=== PATIENT | female | born 1950 | race Caucasian/White ===

== ENCOUNTER → 2018-10-27 | Outpatient (CLI) | payer MEDICARE ==
[~2018-10-27] MED LIST: ACE3 PO; CALC-797 PO; CALC500T42 PO; CHOL100058 PO; CHOL100059 PO; LEVO-311 PO; MULT-820 PO; MULT-885 PO; OMEG-23 PO; OMEG-24 PO; PNEU0.5D3 IM; ZOST19404 SQ; [UNRECOGNIZED DRUG - OTHER] PO
== END ==
LOC: LAB 12:13
PROVIDERS: ATTEND Family Medicine
DX: E87.5 Hyperkalemia (principal)

== ENCOUNTER → 2018-11-06 | Outpatient (CLI) | payer MEDICARE | LOC: LAB 09:44 | PROVIDERS: ATTEND Family Medicine | DX: E87.5 Hyperkalemia (principal) | CPT/HCPCS: 36415; 84132 ==

== ENCOUNTER → 2018-11-17 | Outpatient (CLI) | payer MEDICARE ==
--- NOTE | 2018-11-17 10:50 | RADIOLOGY IMAGING REPORT ---
FACILITY: [facility] - [place] PATIENT NAME: Lucina James : 1950 MR: [id number] V: [id number] EXAM DATE: [id number] ORDERING PHYSICIAN: SUZI DIGGS TECHNOLOGIST: Location: [facility] [place] Patient: Lucina James : 1950 Visit/Account:[id number] Date of Sevice: 11/17/2018 DEXA Scan Clinical history: Menopause, history of breast cancer. Comparison: DEXA scan from 02/23/2009. LUMBAR SPINE: The bone mineral density (BMD) measured from L1-L4 correlates with a Z-score of 3 and a T-score of 1. 7 which is Normal as defined by the World Health Organization. The corresponding risk of fracture in the lumbar spine is Not increased compared with a young adult reference population. This value has decrease by 2.6 % since the prior study. More than 5% change is considered significant. HIP: Bone mineral density (BMD) measured in the LEFT total hip region correlates with a Z-score 1.8 and a T-score of 0.7 which is normal as defined by the World Health Organization. The corresponding risk of fracture in the hip is Not i ncreased compared to a young adult reference population. This value has decrease by 4.8 % since the p rior study. More than 5% change is considered significant. T score left femoral neck -0.1 Bone mineral density (BMD) measured in the Femoral Neck region measures 1.028 g/cm?. IMPRESSION: 1. Lumbar spine: Normal. There has been 2.6% decrease in the bone mineral density since the previou s exam. 2. Left Total Hip: Normal. There has been 4.8% decrease in the bone mineral density since the previ ous exam. 3. Femoral Neck: Bone Mineral Density is 1.028 g/cm? The next DEXA scan of this patient should include the following sites: L1-L4 and the left hip. FRAX? WHO Fracture Risk Assessment Tool link: <http://www.shef.ac.uk/FRAX/tool.jsp?locationValue=9> PLEASE NOTE: 1) The World Health Organization defines low BMD as follows: T-score Normal > -1 Osteopenia < -1 and > -2.5 Osteoporosis < -2.5 without fractures Established osteoporosis < -2.5 with fractures 2) In general, you may wish to consider: Diagnosis Treatment Follow-up DEXA Normal BMD Prevention 2-3 years Osteopenia Prevention/therapy 1-2 years Osteoporosis Therapy Yearly 3) Fracture risk estimated from the T-score is more accurate for vertebral fractures (often spontane ous) than for hip fractures. Report Dictated By: Violet Cruz MD at 11/17/2018 10:39 AM Report E-Signed By: Violet Cruz MD at 11/17/2018 10:41 AM WSN:[email or web address]
== END ==
LOC: RAD 00:44
PROVIDERS: ATTEND Family Medicine
DX: Z78.0 Asymptomatic menopausal state (principal)
CPT/HCPCS: 77080